=== PATIENT | female | born 1970 | race Caucasian/White ===

== ENCOUNTER 2016-06-01 16:59 | Emergency (ER) | payer OTHER | END 2016-06-01 18:10 | disposition home or self-care (01) | LOC: ER1 16:59 | DX: M54.5 Low back pain (principal); G89.29 Other chronic pain; I10 Essential (primary) hypertension; E11.9 Type 2 diabetes mellitus without complications; F17.210 Nicotine dependence, cigarettes, uncomplicated; Z88.0 Allergy status to penicillin | CPT/HCPCS: 96372; 99283; J1885 ==

== ENCOUNTER 2016-07-09 16:09 | Emergency (ER) | payer OTHER | END 2016-07-09 19:05 | disposition home or self-care (01) | LOC: ER1 16:09 | DX: G89.29 Other chronic pain (principal); M54.41 Lumbago with sciatica, right side; M19.90 Unspecified osteoarthritis, unspecified site; I10 Essential (primary) hypertension; G80.9 Cerebral palsy, unspecified; Z90.49 Acquired absence of other specified parts of digestive tract; Z90.710 Acquired absence of both cervix and uterus; Z88.0 Allergy status to penicillin; Z79.891 Long term (current) use of opiate analgesic; Z79.899 Other long term (current) drug therapy | CPT/HCPCS: 72131; 73502; 96372; 99283; J1100 ==

== ENCOUNTER → 2020-05-28 | Outpatient (CLI) | payer OTHER ==
[~2020-05-28] MED LIST: CITALOPRAM HBR40 MG PO; CYCLOBENZAPRINE10 MG PO; FLEXERIL 10 MG10 MG PO; FOSAMAX70 MG PO; GABAPENTIN600 MG PO; GLIMEPIRIDE4 MG PO; HYDRALAZINE HCL25 MG PO; LIPITOR80 MG PO; LISINOPRIL20 MG PO; LODINE CAP 300300 MG PO; NORCO 10-325 T1 EACH PO; PHENERGAN 12.12.5 M1 PO; PLAVIX 75 MG TA75 MG PO; PROTONIX40 MG PO; TOPROL XL100 MG PO; TRICOR 145 MG145 MG PO; VENLAFAXINE HC150 M1 PO; ZOFRAN4 MG PO
== END ==
LOC: KOH-I 05-23 08:00
DX: M54.16 Radiculopathy, lumbar region (principal); M54.12 Radiculopathy, cervical region; J01.00 Acute maxillary sinusitis, unspecified; J32.0 Chronic maxillary sinusitis; M48.02 Spinal stenosis, cervical region
CPT/HCPCS: 72141; 72148

== ENCOUNTER 2020-08-05 09:31 | Emergency (ER) | payer OTHER ==
[2020-08-05 10:18] LABS: HEMOGLOBIN 12.1 gm/dl (12.3-15.3); RED BLOOD COUNT 3.95 M/UL (4.00-5.10); WHITE BLOOD COUNT 3.7 K/UL (4.5-11.0)
[2020-08-05 10:27] LABS: BUN/CREATININE RATIO 20 (0-10)
== END 2020-08-05 11:05 | disposition home or self-care (01) ==
LOC: ER1 09:31
PROVIDERS: Emergency Medicine
DX: G89.29 Other chronic pain (principal); M19.90 Unspecified osteoarthritis, unspecified site
CPT/HCPCS: 80053; 85025; 85652; 86140; 96374; 96375; 99283; J2270; J2405

== ENCOUNTER 2020-12-14 04:31 | Inpatient (IN) | payer OTHER ==
[~2020-12-14] VITALS: Ht 152.4 cm; Wt 90.3 kg
[~2020-12-14 04:31] MED LIST changes: -GABAPENTIN600 MG PO; -TOPROL XL100 MG PO
[2020-12-14 05:06] LABS: HEMOGLOBIN 13.7 gm/dl (12.3-15.3); RED BLOOD COUNT 4.48 M/UL (4.00-5.10); WHITE BLOOD COUNT 10.8 K/UL (4.5-11.0)
[2020-12-14 05:47] LABS: BUN/CREATININE RATIO 21 (0-10)
[2020-12-14 10:12] LABS: BORDETELLA PARAPERTUSSIS Not Detected (Not Detectd); BORDETELLA PERTUSSIS Not Detected (Not Detectd); CHLAMYDIA PNEUMONIAE Not Detected (Not Detectd); CORONAVIRUS HKU1 Not Detected (Not Detectd); CORONAVIRUS NL63 Not Detected (Not Detectd); CORONAVIRUS OC43 Not Detected (Not Detectd); CORONOAVIRUS 229E Not Detected (Not Detectd); HUMAN METAPNEUMOVIRUS Not Detected (Not Detectd); INFLUENZA A Not Detected (Not Detectd); INFLUENZA B Not Detected (Not Detectd); MYCOPLASMA PNEUMONIAE Not Detected (Not Detectd); PARAINFLUENZA VIRUS 1 Not Detected (Not Detectd); PARAINFLUENZA VIRUS 2 Not Detected (Not Detectd); PARAINFLUENZA VIRUS 3 Not Detected (Not Detectd); PARAINFLUENZA VIRUS 4 Not Detected (Not Detectd); RESPIRATORY SYNCYTIAL VIRUS Not Detected (Not Detectd)
[2020-12-14] MEDS ORDERED: TRADJENTA5 MG PO (10:14)
[2020-12-14] MEDS ORDERED: LIORESAL TAB 1010 MG PO (10:14)
[2020-12-14] MEDS ORDERED: TOPIRAMATE50 MG PO (10:15)
[2020-12-14] MEDS ORDERED: MOVANTIK25 MG PO (10:15)
[2020-12-14] MEDS ORDERED: DOCUSATE SODIU100 MG PO (10:34)
[2020-12-14] MEDS ORDERED: DRISDOL1250 MCG PO (10:37)
[2020-12-14] MEDS ORDERED: SENNA8.6 MG PO (10:38)
[2020-12-14 11:43] LABS: SARS-CoV-2 NOT DETECTED (Not Detectd)
[2020-12-14 11:44] LABS: HUMAN RHINOVIRUS/ENTEROVIRUS DETECTED (Not Detectd)
[2020-12-14] MEDS ORDERED: GABAPENTIN600 MG PO (13:32)
[2020-12-14] MEDS ORDERED: TOPROL XL100 MG PO (13:32)
[2020-12-15 07:13] LABS: HEMOGLOBIN 13.3 gm/dl (12.3-15.3); RED BLOOD COUNT 4.4 M/UL (4.00-5.10); WHITE BLOOD COUNT 10.2 K/UL (4.5-11.0)
[2020-12-15 09:10] LABS: BUN/CREATININE RATIO 14 (0-10)
[2020-12-16 06:21] LABS: HEMOGLOBIN 12.8 gm/dl (12.3-15.3); RED BLOOD COUNT 4.21 M/UL (4.00-5.10)
[2020-12-16 06:22] LABS: WHITE BLOOD COUNT 7.4 K/UL (4.5-11.0)
[2020-12-16 06:50] LABS: BUN/CREATININE RATIO 17 (0-10)
[2020-12-17 05:52] LABS: HEMOGLOBIN 12.5 gm/dl (12.3-15.3); RED BLOOD COUNT 4.16 M/UL (4.00-5.10); WHITE BLOOD COUNT 7.1 K/UL (4.5-11.0)
[2020-12-17 06:11] LABS: BUN/CREATININE RATIO 31 (0-10)
--- NOTE | 2020-12-17 06:31 | NUR ---
SPOKE WITH CHUCKIE FROM [facility] STATES GO AHEAD AND ADMINSTER VANOCOMYCIN THIS AM MAY DECREASE NEXT DOSE. VANC TROUGH WAS 12.6
[2020-12-18 07:32] LABS: RED BLOOD COUNT 4.08 M/UL (4.00-5.10); WHITE BLOOD COUNT 7.7 K/UL (4.5-11.0)
[2020-12-18 07:43] LABS: BUN/CREATININE RATIO 33 (0-10)
[2020-12-19 04:38] LABS: HEMOGLOBIN 12.3 gm/dl (12.3-15.3); RED BLOOD COUNT 4.08 M/UL (4.00-5.10); WHITE BLOOD COUNT 7.4 K/UL (4.5-11.0)
[2020-12-19 05:07] LABS: BUN/CREATININE RATIO 22 (0-10)
[2020-12-20 08:12] LABS: HEMOGLOBIN 11.8 gm/dl (12.3-15.3); RED BLOOD COUNT 3.94 M/UL (4.00-5.10); WHITE BLOOD COUNT 7.8 K/UL (4.5-11.0)
[2020-12-20] MEDS ORDERED: CILOXAN 0.3% O2.5 ML EARBOTH (08:49)
[2020-12-20] MEDS ORDERED: AMLODIPINE BESYL5 MG PO (08:52)
[2020-12-20] MEDS ORDERED: HYDRALAZINE HCL25 MG PO (08:52)
[2020-12-20 09:28] LABS: BUN/CREATININE RATIO 19 (0-10)
[2020-12-20] MEDS ORDERED: CEFUROXIME500 MG PO (09:34)
== END 2020-12-20 11:31 | disposition home or self-care (01) | DRG 871 ==
LOC: ER1 04:31 → CDU 10:01 → MED SURG 4 10:01
PROVIDERS: Physician Assistant; Physician Assistant Medical; ADMIT Internal Medicine
DX: A41.51 Sepsis due to Escherichia coli [E. coli] (principal); J96.01 Acute respiratory failure with hypoxia; J18.9 Pneumonia, unspecified organism; N30.00 Acute cystitis without hematuria; J98.11 Atelectasis; Z20.822 Contact with and (suspected) exposure to COVID-19; E87.6 Hypokalemia; F41.9 Anxiety disorder, unspecified; F32.A Depression, unspecified; I10 Essential (primary) hypertension; E78.5 Hyperlipidemia, unspecified; J45.909 Unspecified asthma, uncomplicated; J01.90 Acute sinusitis, unspecified; H66.92 Otitis media, unspecified, left ear; Z96.652 Presence of left artificial knee joint; Z96.661 Presence of right artificial ankle joint; G80.9 Cerebral palsy, unspecified; E11.9 Type 2 diabetes mellitus without complications; Z90.49 Acquired absence of other specified parts of digestive tract; Z90.710 Acquired absence of both cervix and uterus; Z98.890 Other specified postprocedural states; Z88.0 Allergy status to penicillin; Z82.49 Family history of ischemic heart disease and other diseases of the circulatory system; Z83.3 Family history of diabetes mellitus
CPT/HCPCS: 36415; 36600; 70450; 71045; 80053; 80202; 81001; 82550; 82553; 82803; 82962; 83605; 83735; 83880; 84100; 84484; 85025; 85027; 85379; 85610; 85652; 85730; 86140; 87040; 87077; 87081; 87086; 87186; 87633; 87880; 93005; 94640; 94664; 94760; 96374; 96375; 97116-GP-CQ; 97161; 97166; 99285; C9113; J0696; J1650; J1956; J2405; J2550; J3370; J7030; J7050; J7070; Q9967; U0002

== ENCOUNTER 2021-10-08 21:28 | Inpatient (IN) | payer OTHER ==
[~2021-10-08] VITALS: Ht 152.4 cm; Wt 105.5 kg
[~2021-10-08 21:28] MED LIST changes: +AMLODIPINE BESYL5 MG PO; +CEFUROXIME500 MG PO; +CILOXAN 0.3% O2.5 ML EARBOTH; +DOCUSATE SODIU100 MG PO; +DRISDOL1250 MCG PO; +GABAPENTIN600 MG PO; +HYDROCODON-ACE1 EAC6 PO; +LIORESAL TAB 1010 MG PO; -LIPITOR80 MG PO; +MOVANTIK25 MG PO; -NORCO 10-325 T1 EACH PO; +SENNA8.6 MG PO; +TOPIRAMATE50 MG PO; +TOPROL XL100 MG PO; +TRADJENTA5 MG PO
[2021-10-08 21:44] LABS: HEMOGLOBIN 12.9 gm/dl (12.3-15.3); RED BLOOD COUNT 4.14 M/UL (4.00-5.10); WHITE BLOOD COUNT 10.7 K/UL (4.5-11.0)
[2021-10-09] MEDS ORDERED: LIPITOR40 MG PO (10:23)
[2021-10-09] MEDS ORDERED: LASIX TAB 20 MG20 MG PO (10:27)
[2021-10-09] MEDS ORDERED: VITAMIN D21250 MCG PO (10:29)
[2021-10-09] MEDS ORDERED: LOW DOSE ASPIRI81 MG PO (10:30)
[2021-10-09] MEDS ORDERED: TRADJENTA5 MG PO (16:05)
[2021-10-10 06:43] LABS: HEMOGLOBIN 12.2 gm/dl (12.3-15.3); RED BLOOD COUNT 3.92 M/UL (4.00-5.10); WHITE BLOOD COUNT 9.3 K/UL (4.5-11.0)
[2021-10-12 05:06] LABS: BUN/CREATININE RATIO 30 (0-10)
[2021-10-13 06:59] LABS: BUN/CREATININE RATIO 27 (0-10)
[2021-10-14 06:39] LABS: HEMOGLOBIN 11.7 gm/dl (12.3-15.3); RED BLOOD COUNT 3.72 M/UL (4.00-5.10); WHITE BLOOD COUNT 8.9 K/UL (4.5-11.0)
[2021-10-15 07:24] LABS: BUN/CREATININE RATIO 29 (0-10)
[2021-10-15] MEDS ORDERED: PROTONIX 40 MG40 M1 PO (17:56)
[2021-10-15] MEDS ORDERED: NITROGLYCERIN0.4 MG SL (17:56)
[2021-10-15] MEDS ORDERED: ISOSORBIDE MONO30 MG PO (18:44)
[2021-10-15] MEDS ORDERED: DEX4 GLUCOSE4 GM PO (19:00)
== END 2021-10-15 18:47 | disposition home or self-care (01) | DRG 291 ==
LOC: ER1 21:28 → MED SURG 4 10-09 01:44 → CDU 10-09 01:44 → MED SURG 4 10-09 08:25
PROVIDERS: Family Medicine; Internal Medicine; Physician Assistant; ADMIT Internal Medicine
PROC: B24BZZZ Ultrasonography of Heart with Aorta (ICD-10-PCS; principal; 2021-10-09)
DX: I11.0 Hypertensive heart disease with heart failure (principal); I50.33 Acute on chronic diastolic (congestive) heart failure; N17.9 Acute kidney failure, unspecified; Z20.822 Contact with and (suspected) exposure to COVID-19; E78.5 Hyperlipidemia, unspecified; E11.9 Type 2 diabetes mellitus without complications; J45.909 Unspecified asthma, uncomplicated; G80.9 Cerebral palsy, unspecified; K21.9 Gastro-esophageal reflux disease without esophagitis; F41.9 Anxiety disorder, unspecified; M81.0 Age-related osteoporosis without current pathological fracture; M41.9 Scoliosis, unspecified; M19.90 Unspecified osteoarthritis, unspecified site; E86.0 Dehydration; E66.01 Morbid (severe) obesity due to excess calories; E87.5 Hyperkalemia; Z79.01 Long term (current) use of anticoagulants; Z79.82 Long term (current) use of aspirin; Z90.710 Acquired absence of both cervix and uterus; Z98.890 Other specified postprocedural states; Z98.891 History of uterine scar from previous surgery; Z90.49 Acquired absence of other specified parts of digestive tract; Z82.49 Family history of ischemic heart disease and other diseases of the circulatory system; Z83.3 Family history of diabetes mellitus; Z88.0 Allergy status to penicillin
CPT/HCPCS: ECHO; 0240U; 36415; 36600; 71045; 73200; 78452; 80048; 80053; 81001; 82550; 82553; 82803; 82962; 83880; 84132; 84484; 85025; 85379; 85610; 85730; 93005; 93017; 93306; 93971; 94640; 94664; 94760; 94762; 96372; 96374; 96375; 96376; 97116-GP-CQ; 97161; 99285; A9502; G0378; J1650; J1940; J2405; J2550; J2785